=== PATIENT | male | born 1960 | race Caucasian/White ===

== ENCOUNTER 2022-09-21 03:06 | Inpatient (IN) | payer MEDICAID, OTHER ==
[~2022-09-21] VITALS: Ht 177.8 cm; Wt 51.3 kg
[2022-09-21] VITALS (11 sets, daily range): BP systolic 91–115; BP diastolic 68–91
[2022-09-21] MEDS ORDERED: ONDANSETRON HCL 4MG/2ML INJ IV STA (03:30)
[2022-09-21] MEDS ORDERED: PIPERACILLIN/TAZ 3.375G PREMIX 50 ML IV ONE (03:30)
[2022-09-21] MEDS ORDERED: SODIUM CHLORIDE 0.9% 1000ML BAG (SEPSIS BOLUS) IV ONE (03:30)
[2022-09-21] MEDS ORDERED: VANCOMYCIN 1G PREMIX 200 ML IV ONE (03:30)
[2022-09-21] MEDS ORDERED: ALBUTEROL (0.083%) 2.5MG/3ML NEB HHN STA (03:36)
[2022-09-21] MEDS ORDERED: MAGNESIUM 2 G PREMIX 50 ML IV STA (03:36)
[2022-09-21] MEDS ORDERED: METHYLPREDNISOLONE SOD SUCC 125 MG/2 ML VIAL IV STA (03:36)
[2022-09-21] MEDS ORDERED: IPRATROPIUM BROMIDE (0.02%) 0.5MG/2.5ML NEB HHN STA (03:36)
[2022-09-21 03:56] LABS: BG CARBOXYHEMOGLOBIN 0.9 % (0.5-1.5); BG FRACTION INSPIRED OXYGEN 100; BG HCO3 ACT 27.2 mmol/L (22.0-26.0); BG METHEMOGLOBIN 0.4 % (0.0-1.5); BG OXYHEMOGLOBIN 95.7 % (94.0-97.0); BG PH 7.363 (7.350-7.450); BG PO2 92.9 mmHg (75.0-100.0); BG SAMPLE SITE RIGHT RADIAL; BG TOTAL HEMOGLOBIN 16.3 g/dL (12.0-18.0); BG VENT MODE HIGH FLOW
[2022-09-21 04:17] LABS: BASOPHILS % 0.2 % (0.0-2.0); EOSINOPHILS % 0.4 % (0.0-5.0); HEMATOCRIT. 45.3 % (42.0-52.0); HEMOGLOBIN. 15.6 g/dL (14.0-18.0); LYMPHOCYTES % 8.7 % (20.0-50.0); MEAN CORPUSCULAR VOLUME 87.2 fL (80.0-94.0); MEAN PLATELET VOLUME 7.9 fl (7.4-10.4); MONOCYTES % 6.1 % (2.0-8.0); NEUTROPHILS % 84.6 % (40.0-76.0); PLATELET 235 x1000/uL (130-400); RED CELL DISTRIBUTION WIDTH 14.3 % (11.6-14.6)
[2022-09-21 04:28] LABS: CHLORIDE 99 mEq/L (98-107)
[2022-09-21] MEDS ORDERED: IPRATROPIUM/ALBUTEROL 0.5-3(2.5)MG/3ML NEB HHN ONE (08:00)
[2022-09-21] MEDS ORDERED: ONDANSETRON HCL 4MG/2ML INJ IV PRN (10:00)
[2022-09-21] MEDS: METHYLPREDNISOLONE SOD SUCC 40 MG/ML VIAL IV SCH ×3 (10:31→21:51)
[2022-09-21] MEDS: FAMOTIDINE 20MG TABLET PO SCH ×2 (14:05→21:51)
[2022-09-21] MEDS: ENOXAPARIN 40MG/0.4ML SYR SUBCUT SCH (14:06)
[2022-09-21] MEDS ORDERED: LEVO137T2 PO (15:47)
[2022-09-21] MEDS ORDERED: [UNRECOGNIZED DRUG - CODE] PO (15:47)
[2022-09-21] MEDS ORDERED: CARB10DR EACHEYE (15:50)
[2022-09-21] MEDS ORDERED: DORZ10DR12 EACHEYE (15:50)
[2022-09-21] MEDS ORDERED: BRIM5DRO6 EACHEYE (15:50)
[2022-09-21] MEDS ORDERED: CETI10TA6 PO (15:59)
[2022-09-21] MEDS ORDERED: BRIM5DRO6 LEFTEYE (15:59)
[2022-09-21] MEDS ORDERED: HYDR-4001 MT (15:59)
[2022-09-21] MEDS ORDERED: DORZ10DR12 LEFTEYE (15:59)
[2022-09-21] MEDS: IPRATROPIUM/ALBUTEROL 0.5-3(2.5)MG/3ML NEB HHN SCH ×2 (16:13→20:56)
[2022-09-21] MEDS: [UNRECOGNIZED DRUG - OTHER] PO SCH (17:17)
[2022-09-21] MEDS ORDERED: FAMOTIDINE 20MG TABLET PO SCH (21:00)
[2022-09-21] MEDS: GUAIFENESIN 600MG ER TABLET PO SCH (21:50)
[2022-09-21] MEDS: HYDROCODONE/ACETAMINOPHEN 5/325MG TABLET PO PRN (21:51)
[2022-09-22] VITALS (12 sets, daily range): BP systolic 94–129; BP diastolic 66–92
[2022-09-22] MEDS: IPRATROPIUM/ALBUTEROL 0.5-3(2.5)MG/3ML NEB HHN SCH ×6 (00:43→21:21)
[2022-09-22 06:14] LABS: HEMATOCRIT 44.6 % (42.0-52.0); HEMOGLOBIN 15.2 g/dL (14.0-18.0); MEAN CORPUSCULAR HEMOGLOBIN 29.6 pg (28.0-32.0); MEAN CORPUSCULAR VOLUME 87.1 fL (80.0-94.0); PLATELET 235 x1000/uL (130-400); RED BLOOD CELL COUNT 5.11 mill/uL (4.7-6.1); RED CELL DISTRIBUTION WIDTH 14.1 % (11.6-14.6)
[2022-09-22] MEDS: HYDROCODONE/ACETAMINOPHEN 5/325MG TABLET PO PRN ×2 (06:41→21:31)
[2022-09-22] MEDS: METHYLPREDNISOLONE SOD SUCC 40 MG/ML VIAL IV SCH ×3 (06:41→21:31)
[2022-09-22] MEDS: LEVOTHYROXINE SODIUM 137MCG TABLET PO SCH (08:26)
[2022-09-22 08:38] LABS: CHLORIDE 97 mEq/L (98-107)
[2022-09-22 08:53] LABS: HDL CHOLESTEROL 58 mg/dL (40-59); LDL CHOLESTEROL 76 mg/dL (5-100); PHOSPHORUS 3.5 mg/dL (2.5-4.9)
[2022-09-22] MEDS: ENOXAPARIN 40MG/0.4ML SYR SUBCUT SCH (09:23)
[2022-09-22] MEDS: FAMOTIDINE 20MG TABLET PO SCH ×2 (09:23→21:31)
[2022-09-22] MEDS: CETIRIZINE 10MG TABLET PO SCH (09:24)
[2022-09-22] MEDS: [UNRECOGNIZED DRUG - OTHER] PO SCH (09:24)
[2022-09-22] MEDS: DORZOLAM/TIMOLOL 2.23/0.68% OPHTH DROPS 10ML LEFTEYE SCH ×2 (09:24→17:39)
[2022-09-22] MEDS: GUAIFENESIN 600MG ER TABLET PO SCH ×2 (09:24→21:00)
[2022-09-22] MEDS: CEFEPIME 1,000 MG in DEXTROSE 5% WATER 50 ML IV SCH (10:36)
[2022-09-22] MEDS ORDERED: SODIUM CHLORIDE 3% FOR INH 4ML UD NEB INH NR (14:00)
[2022-09-22] MEDS: DEXT 5%/0.45% NACL 1000ML 1,000 ML IV SCH (14:28)
[2022-09-22] MEDS ORDERED: NALOXONE HCL 0.4MG/ML VIAL IV PRN (16:00)
[2022-09-23] VITALS (15 sets, daily range): BP systolic 91–128; BP diastolic 53–92
[2022-09-23] MEDS: IPRATROPIUM/ALBUTEROL 0.5-3(2.5)MG/3ML NEB HHN SCH ×5 (05:03→20:16)
[2022-09-23 05:43] LABS: HEMATOCRIT. 42.4 % (42.0-52.0); HEMOGLOBIN. 14.4 g/dL (14.0-18.0); LYMPHOCYTES % 7.2 % (20.0-50.0); MEAN CORPUSCULAR HEMOGLOBIN 29.7 pg (28.0-32.0); MEAN CORPUSCULAR VOLUME 87.7 fL (80.0-94.0); MEAN PLATELET VOLUME 8.1 fl (7.4-10.4); MONOCYTES % 6.2 % (2.0-8.0); NEUTROPHILS % 86.6 % (40.0-76.0); PLATELET 216 x1000/uL (130-400); RED BLOOD CELL COUNT 4.83 mill/uL (4.7-6.1); RED CELL DISTRIBUTION WIDTH 13.9 % (11.6-14.6)
[2022-09-23] MEDS: METHYLPREDNISOLONE SOD SUCC 40 MG/ML VIAL IV SCH ×3 (06:00→22:02)
[2022-09-23] MEDS: DEXT 5%/0.45% NACL 1000ML 1,000 ML IV SCH (07:07)
[2022-09-23] MEDS: ENOXAPARIN 40MG/0.4ML SYR SUBCUT SCH (09:10)
[2022-09-23] MEDS: GUAIFENESIN 600MG ER TABLET PO SCH ×2 (09:11→22:02)
[2022-09-23] MEDS: FAMOTIDINE 20MG TABLET PO SCH (09:11)
[2022-09-23] MEDS: CETIRIZINE 10MG TABLET PO SCH (09:11)
[2022-09-23] MEDS: LEVOTHYROXINE SODIUM 137MCG TABLET PO SCH (09:11)
[2022-09-23] MEDS: DORZOLAM/TIMOLOL 2.23/0.68% OPHTH DROPS 10ML LEFTEYE SCH ×2 (09:12→17:53)
[2022-09-23] MEDS: HYDROCODONE/ACETAMINOPHEN 5/325MG TABLET PO PRN ×2 (09:15→22:02)
[2022-09-23] MEDS: CEFEPIME 1,000 MG in DEXTROSE 5% WATER 50 ML IV SCH (09:32)
[2022-09-23 10:11] LABS: CHLORIDE 99 mEq/L (98-107)
[2022-09-23] MEDS: [UNRECOGNIZED DRUG - OTHER] PO SCH (17:53)
[2022-09-23] MEDS: FAMOTIDINE 20MG/2ML VIAL IV SCH (22:02)
[2022-09-24] VITALS (17 sets, daily range): BP systolic 75–138; BP diastolic 45–99
[2022-09-24] MEDS: IPRATROPIUM/ALBUTEROL 0.5-3(2.5)MG/3ML NEB HHN SCH ×6 (00:38→20:04)
[2022-09-24] MEDS: METHYLPREDNISOLONE SOD SUCC 40 MG/ML VIAL IV SCH ×3 (05:47→21:50)
[2022-09-24] MEDS: DEXT 5%/0.45% NACL 1000ML 1,000 ML IV SCH (05:47)
[2022-09-24 06:13] LABS: CHLORIDE 99 mEq/L (98-107)
[2022-09-24 06:23] LABS: PHOSPHORUS 2.9 mg/dL (2.5-4.9)
[2022-09-24 06:31] LABS: HEMATOCRIT 43.1 % (42.0-52.0); HEMOGLOBIN 14.7 g/dL (14.0-18.0); MEAN CORPUSCULAR HEMOGLOBIN 29.9 pg (28.0-32.0); MEAN CORPUSCULAR VOLUME 87.8 fL (80.0-94.0); PLATELET 201 x1000/uL (130-400); RED BLOOD CELL COUNT 4.91 mill/uL (4.7-6.1); RED CELL DISTRIBUTION WIDTH 14.1 % (11.6-14.6)
[2022-09-24] MEDS: HYDROCODONE/ACETAMINOPHEN 5/325MG TABLET PO PRN (07:11)
[2022-09-24 08:57] LABS: BG BASE EXCESS 6.1 mmol/L (-2.0-2.0); BG CARBOXYHEMOGLOBIN 0.7 % (0.5-1.5); BG DEOXYHEMOGLOBIN 0.2 % (0.0-5.0); BG FRACTION INSPIRED OXYGEN 100; BG HCO3 ACT 30.9 mmol/L (22.0-26.0); BG METHEMOGLOBIN 0.4 % (0.0-1.5); BG OXYGEN SATURATION 99.8 % (92.0-98.5); BG OXYHEMOGLOBIN 98.7 % (94.0-97.0); BG PCO2 44.5 mmHg (35.0-45.0); BG PH 7.459 (7.350-7.450); BG PO2 334.4 mmHg (75.0-100.0); BG SAMPLE SITE RIGHT BRACHIAL; BG TOTAL HEMOGLOBIN 15.3 g/dL (12.0-18.0); BG VENT MODE HIGH FLOW
[2022-09-24] MEDS: [UNRECOGNIZED DRUG - OTHER] PO SCH (09:00)
[2022-09-24] MEDS: ENOXAPARIN 40MG/0.4ML SYR SUBCUT SCH (09:49)
[2022-09-24] MEDS: FAMOTIDINE 20MG/2ML VIAL IV SCH ×2 (09:49→21:50)
[2022-09-24] MEDS: CETIRIZINE 10MG TABLET PO SCH (09:49)
[2022-09-24] MEDS: CEFEPIME 1,000 MG in DEXTROSE 5% WATER 50 ML IV SCH (09:49)
[2022-09-24] MEDS: GUAIFENESIN 600MG ER TABLET PO SCH ×2 (09:49→21:51)
[2022-09-24] MEDS: DORZOLAM/TIMOLOL 2.23/0.68% OPHTH DROPS 10ML LEFTEYE SCH ×2 (09:50→17:24)
[2022-09-24] MEDS: LEVOTHYROXINE SODIUM 137MCG TABLET PO SCH (15:10)
[2022-09-24] MEDS ORDERED: MORPHINE SULFATE 2 MG/ML CPJ (NOT FOR IM USE) IV NR (17:15)
[2022-09-25] VITALS (22 sets, daily range): BP systolic 88–137; BP diastolic 60–103
[2022-09-25] MEDS: IPRATROPIUM/ALBUTEROL 0.5-3(2.5)MG/3ML NEB HHN SCH ×6 (00:17→20:39)
[2022-09-25] MEDS: DEXT 5%/0.45% NACL 1000ML 1,000 ML IV SCH ×2 (01:38→22:19)
[2022-09-25] MEDS: METHYLPREDNISOLONE SOD SUCC 40 MG/ML VIAL IV SCH ×3 (06:04→22:19)
[2022-09-25] MEDS: LEVOTHYROXINE SODIUM 137MCG TABLET PO SCH (07:46)
[2022-09-25 08:47] LABS: HEMATOCRIT 46.3 % (42.0-52.0); HEMOGLOBIN 15.6 g/dL (14.0-18.0); MEAN CORPUSCULAR HEMOGLOBIN 29.8 pg (28.0-32.0); MEAN CORPUSCULAR VOLUME 88.3 fL (80.0-94.0); PLATELET 194 x1000/uL (130-400); RED BLOOD CELL COUNT 5.24 mill/uL (4.7-6.1); RED CELL DISTRIBUTION WIDTH 14.2 % (11.6-14.6)
[2022-09-25] MEDS: CETIRIZINE 10MG TABLET PO SCH (09:00)
[2022-09-25] MEDS: [UNRECOGNIZED DRUG - OTHER] PO SCH (09:00)
[2022-09-25 09:06] LABS: CHLORIDE 100 mEq/L (98-107)
[2022-09-25] MEDS: FAMOTIDINE 20MG/2ML VIAL IV SCH ×2 (09:51→22:18)
[2022-09-25] MEDS: GUAIFENESIN 600MG ER TABLET PO SCH ×2 (09:51→22:17)
[2022-09-25] MEDS: ENOXAPARIN 40MG/0.4ML SYR SUBCUT SCH (09:52)
[2022-09-25] MEDS: CEFEPIME 1,000 MG in DEXTROSE 5% WATER 50 ML IV SCH (09:53)
[2022-09-25] MEDS: DORZOLAM/TIMOLOL 2.23/0.68% OPHTH DROPS 10ML LEFTEYE SCH ×2 (10:01→17:43)
[2022-09-25] MEDS: MORPHINE SULFATE 2 MG/ML CPJ (NOT FOR IM USE) IV PRN (12:10)
[2022-09-25] MEDS: HYDROCODONE/ACETAMINOPHEN 5/325MG TABLET PO PRN (22:30)
[2022-09-26] VITALS (23 sets, daily range): BP systolic 88–150; BP diastolic 61–102
[2022-09-26] MEDS: IPRATROPIUM/ALBUTEROL 0.5-3(2.5)MG/3ML NEB HHN SCH ×6 (04:27→21:44)
[2022-09-26] MEDS: LEVOTHYROXINE SODIUM 137MCG TABLET PO SCH (06:22)
[2022-09-26] MEDS: MORPHINE SULFATE 2 MG/ML CPJ (NOT FOR IM USE) IV PRN ×3 (06:23→21:44)
[2022-09-26] MEDS: METHYLPREDNISOLONE SOD SUCC 40 MG/ML VIAL IV SCH ×3 (06:27→21:43)
[2022-09-26 08:23] LABS: BG BASE EXCESS 3.6 mmol/L (-2.0-2.0); BG CARBOXYHEMOGLOBIN 0.3 % (0.5-1.5); BG DEOXYHEMOGLOBIN 1.9 % (0.0-5.0); BG HCO3 ACT 28.1 mmol/L (22.0-26.0); BG METHEMOGLOBIN 0.1 % (0.0-1.5); BG OXYGEN SATURATION 98.1 % (92.0-98.5); BG OXYHEMOGLOBIN 97.7 % (94.0-97.0); BG PCO2 42.2 mmHg (35.0-45.0); BG PH 7.442 (7.350-7.450); BG PO2 108.1 mmHg (75.0-100.0); BG SAMPLE SITE RIGHT BRACHIAL; BG TOTAL HEMOGLOBIN 15.6 g/dL (12.0-18.0); BG VENT MODE VAPOTHERM
[2022-09-26] MEDS: GUAIFENESIN 600MG ER TABLET PO SCH ×2 (09:25→21:43)
[2022-09-26] MEDS: FAMOTIDINE 20MG/2ML VIAL IV SCH ×2 (09:25→21:43)
[2022-09-26] MEDS: ENOXAPARIN 40MG/0.4ML SYR SUBCUT SCH (09:25)
[2022-09-26] MEDS: CEFEPIME 1,000 MG in DEXTROSE 5% WATER 50 ML IV SCH (09:25)
[2022-09-26] MEDS: CETIRIZINE 10MG TABLET PO SCH (09:26)
[2022-09-26] MEDS: DORZOLAM/TIMOLOL 2.23/0.68% OPHTH DROPS 10ML LEFTEYE SCH ×2 (09:26→17:30)
[2022-09-26] MEDS: [UNRECOGNIZED DRUG - OTHER] PO SCH (09:26)
[2022-09-26 12:05] LABS: HEMATOCRIT. 44.8 % (42.0-52.0); HEMOGLOBIN. 15.1 g/dL (14.0-18.0); MEAN CORPUSCULAR HEMOGLOBIN 29.8 pg (28.0-32.0); MEAN CORPUSCULAR VOLUME 88.5 fL (80.0-94.0); MEAN PLATELET VOLUME 8.8 fl (7.4-10.4); PLATELET 172 x1000/uL (130-400); RED BLOOD CELL COUNT 5.06 mill/uL (4.7-6.1); RED CELL DISTRIBUTION WIDTH 14.1 % (11.6-14.6)
[2022-09-26 15:33] LABS: CHLORIDE 103 mEq/L (98-107)
[2022-09-26] MEDS: DEXT 5%/0.45% NACL 1000ML 1,000 ML IV SCH (17:29)
[2022-09-26] MEDS: HYDROCODONE/ACETAMINOPHEN 5/325MG TABLET PO PRN (18:43)
[2022-09-27] VITALS (15 sets, daily range): BP systolic 97–135; BP diastolic 66–97
[2022-09-27] MEDS: IPRATROPIUM/ALBUTEROL 0.5-3(2.5)MG/3ML NEB HHN SCH ×6 (01:00→20:56)
[2022-09-27 06:37] LABS: PLATELET ESTIMATE NORMAL
[2022-09-27] MEDS: METHYLPREDNISOLONE SOD SUCC 40 MG/ML VIAL IV SCH ×3 (06:40→22:21)
[2022-09-27] MEDS: LEVOTHYROXINE SODIUM 137MCG TABLET PO SCH (06:40)
[2022-09-27] MEDS: HYDROCODONE/ACETAMINOPHEN 5/325MG TABLET PO PRN ×4 (08:08→21:14)
[2022-09-27] MEDS: FAMOTIDINE 20MG/2ML VIAL IV SCH ×2 (08:08→21:14)
[2022-09-27] MEDS: GUAIFENESIN 600MG ER TABLET PO SCH ×2 (08:09→21:14)
[2022-09-27] MEDS: ENOXAPARIN 40MG/0.4ML SYR SUBCUT SCH (08:09)
[2022-09-27] MEDS: DORZOLAM/TIMOLOL 2.23/0.68% OPHTH DROPS 10ML LEFTEYE SCH ×2 (08:42→17:38)
[2022-09-27] MEDS: [UNRECOGNIZED DRUG - OTHER] PO SCH (08:42)
[2022-09-27] MEDS: CETIRIZINE 10MG TABLET PO SCH (08:43)
[2022-09-27 09:14] LABS: BG BASE EXCESS 5.2 mmol/L (-2.0-2.0); BG CARBOXYHEMOGLOBIN 0.3 % (0.5-1.5); BG DEOXYHEMOGLOBIN 2.4 % (0.0-5.0); BG FRACTION INSPIRED OXYGEN 50; BG HCO3 ACT 29.9 mmol/L (22.0-26.0); BG METHEMOGLOBIN 0.5 % (0.0-1.5); BG OXYGEN SATURATION 97.6 % (92.0-98.5); BG OXYHEMOGLOBIN 96.8 % (94.0-97.0); BG PO2 100.2 mmHg (75.0-100.0); BG SAMPLE SITE RIGHT RADIAL; BG TOTAL HEMOGLOBIN 15.4 g/dL (12.0-18.0); BG VENT MODE HIGH FLOW
[2022-09-27 09:27] LABS: HEMATOCRIT 44.5 % (42.0-52.0); MEAN CORPUSCULAR HEMOGLOBIN 29.8 pg (28.0-32.0); MEAN CORPUSCULAR VOLUME 88.7 fL (80.0-94.0); PLATELET 164 x1000/uL (130-400); RED BLOOD CELL COUNT 5.02 mill/uL (4.7-6.1); RED CELL DISTRIBUTION WIDTH 14.2 % (11.6-14.6)
[2022-09-27 09:54] LABS: CHLORIDE 105 mEq/L (98-107)
[2022-09-27] MEDS: CEFEPIME 1,000 MG in DEXTROSE 5% WATER 50 ML IV SCH (10:01)
[2022-09-27] MEDS ORDERED: POTASSIUM CHLORIDE 20MEQ TABLET SR PO NR (10:15)
[2022-09-27] MEDS ORDERED: POTASSIUM CHLORIDE 20MEQ/PACKET PO NR (10:18)
[2022-09-27] MEDS: DEXT 5%/0.45% NACL 1000ML 1,000 ML IV SCH (13:39)
[2022-09-27] MEDS ORDERED: ERGOCALCIFEROL 50000UNITS CAPSULE PO ONE (14:30)
[2022-09-27] MEDS: ZINC SULFATE 220 MG ( 50 ) CAPSULE PO SCH (14:43)
[2022-09-27] MEDS: MULTIVITAMINS,THER W-MINERALS TABLET PO SCH (14:43)
[2022-09-27] MEDS: ASCORBIC ACID 500 MG TABLET PO SCH (14:43)
[2022-09-27] MEDS: CHOLECALCIFEROL (VIT D3) 400 UNIT TABLET PO SCH (18:28)
[2022-09-27] MEDS ORDERED: IOHEXOL-350 100 ML BOTTLE ONE (19:17)
[2022-09-27] MEDS: MORPHINE SULFATE 2 MG/ML CPJ (NOT FOR IM USE) IV PRN (22:21)
[2022-09-28] VITALS (12 sets, daily range): BP systolic 99–125; BP diastolic 68–90
[2022-09-28] MEDS: HYDROCODONE/ACETAMINOPHEN 5/325MG TABLET PO PRN ×4 (04:27→20:48)
[2022-09-28] MEDS: IPRATROPIUM/ALBUTEROL 0.5-3(2.5)MG/3ML NEB HHN SCH ×5 (04:33→20:09)
[2022-09-28] MEDS: METHYLPREDNISOLONE SOD SUCC 40 MG/ML VIAL IV SCH ×3 (05:10→20:48)
[2022-09-28 07:35] LABS: HEMATOCRIT. 41.3 % (42.0-52.0); HEMOGLOBIN. 14.1 g/dL (14.0-18.0); LYMPHOCYTES % 8.7 % (20.0-50.0); MEAN CORPUSCULAR HEMOGLOBIN 29.9 pg (28.0-32.0); MEAN CORPUSCULAR VOLUME 87.9 fL (80.0-94.0); MEAN PLATELET VOLUME 8.5 fl (7.4-10.4); MONOCYTES % 7.8 % (2.0-8.0); NEUTROPHILS % 83.5 % (40.0-76.0); PLATELET 178 x1000/uL (130-400); RED BLOOD CELL COUNT 4.69 mill/uL (4.7-6.1); RED CELL DISTRIBUTION WIDTH 13.9 % (11.6-14.6)
[2022-09-28 07:40] LABS: CHLORIDE 103 mEq/L (98-107)
[2022-09-28] MEDS: MULTIVITAMINS,THER W-MINERALS TABLET PO SCH (08:44)
[2022-09-28] MEDS: [UNRECOGNIZED DRUG - OTHER] PO SCH (08:44)
[2022-09-28] MEDS: ASCORBIC ACID 500 MG TABLET PO SCH (08:44)
[2022-09-28] MEDS: GUAIFENESIN 600MG ER TABLET PO SCH ×2 (08:44→20:48)
[2022-09-28] MEDS: LEVOTHYROXINE SODIUM 137MCG TABLET PO SCH (08:44)
[2022-09-28] MEDS: ZINC SULFATE 220 MG ( 50 ) CAPSULE PO SCH (08:44)
[2022-09-28] MEDS: DORZOLAM/TIMOLOL 2.23/0.68% OPHTH DROPS 10ML LEFTEYE SCH ×2 (08:44→17:41)
[2022-09-28] MEDS: CETIRIZINE 10MG TABLET PO SCH (08:45)
[2022-09-28] MEDS: DEXT 5%/0.45% NACL 1000ML 1,000 ML IV SCH (08:45)
[2022-09-28] MEDS: ENOXAPARIN 40MG/0.4ML SYR SUBCUT SCH (08:45)
[2022-09-28 09:54] LABS: BG BASE EXCESS 8.1 mmol/L (-2.0-2.0); BG CARBOXYHEMOGLOBIN 0.3 % (0.5-1.5); BG DEOXYHEMOGLOBIN 1.6 % (0.0-5.0); BG FRACTION INSPIRED OXYGEN 50; BG HCO3 ACT 32.9 mmol/L (22.0-26.0); BG METHEMOGLOBIN 0.2 % (0.0-1.5); BG OXYGEN SATURATION 98.4 % (92.0-98.5); BG OXYHEMOGLOBIN 97.9 % (94.0-97.0); BG PCO2 45.9 mmHg (35.0-45.0); BG PH 7.473 (7.350-7.450); BG PO2 122.4 mmHg (75.0-100.0); BG SAMPLE SITE RIGHT RADIAL; BG TOTAL HEMOGLOBIN 14.4 g/dL (12.0-18.0); BG VENT MODE HIGH FLOW
[2022-09-28] MEDS: FAMOTIDINE 20MG/2ML VIAL IV SCH ×2 (13:49→20:48)
[2022-09-28] MEDS: MORPHINE SULFATE 2 MG/ML CPJ (NOT FOR IM USE) IV PRN (22:04)
[2022-09-29] VITALS (18 sets, daily range): BP systolic 109–146; BP diastolic 70–100
[2022-09-29] MEDS: IPRATROPIUM/ALBUTEROL 0.5-3(2.5)MG/3ML NEB HHN SCH ×6 (00:10→20:59)
[2022-09-29] MEDS: HYDROCODONE/ACETAMINOPHEN 5/325MG TABLET PO PRN ×3 (04:36→23:32)
[2022-09-29] MEDS: DEXT 5%/0.45% NACL 1000ML 1,000 ML IV SCH (04:37)
[2022-09-29] MEDS: METHYLPREDNISOLONE SOD SUCC 40 MG/ML VIAL IV SCH ×3 (04:56→21:11)
[2022-09-29 06:42] LABS: HEMATOCRIT. 40.5 % (42.0-52.0); HEMOGLOBIN. 13.6 g/dL (14.0-18.0); MEAN CORPUSCULAR HEMOGLOBIN 29.9 pg (28.0-32.0); MEAN CORPUSCULAR VOLUME 88.8 fL (80.0-94.0); MEAN PLATELET VOLUME 8.7 fl (7.4-10.4); PLATELET 177 x1000/uL (130-400); RED BLOOD CELL COUNT 4.56 mill/uL (4.7-6.1); RED CELL DISTRIBUTION WIDTH 14.4 % (11.6-14.6)
[2022-09-29] MEDS: [UNRECOGNIZED DRUG - OTHER] PO SCH (09:00)
[2022-09-29 09:19] LABS: BG BASE EXCESS 9.2 mmol/L (-2.0-2.0); BG CARBOXYHEMOGLOBIN 0.4 % (0.5-1.5); BG DEOXYHEMOGLOBIN 0.8 % (0.0-5.0); BG FRACTION INSPIRED OXYGEN 50; BG HCO3 ACT 34.4 mmol/L (22.0-26.0); BG METHEMOGLOBIN 0.3 % (0.0-1.5); BG OXYGEN SATURATION 99.2 % (92.0-98.5); BG OXYHEMOGLOBIN 98.5 % (94.0-97.0); BG PCO2 48.5 mmHg (35.0-45.0); BG PH 7.469 (7.350-7.450); BG PO2 183.6 mmHg (75.0-100.0); BG SAMPLE SITE RIGHT RADIAL; BG TOTAL HEMOGLOBIN 14.5 g/dL (12.0-18.0); BG VENT MODE VAPOTHERM
[2022-09-29] MEDS: CETIRIZINE 10MG TABLET PO SCH (09:21)
[2022-09-29] MEDS: ASCORBIC ACID 500 MG TABLET PO SCH (09:21)
[2022-09-29] MEDS: MULTIVITAMINS,THER W-MINERALS TABLET PO SCH (09:21)
[2022-09-29] MEDS: ZINC SULFATE 220 MG ( 50 ) CAPSULE PO SCH (09:21)
[2022-09-29] MEDS: FAMOTIDINE 20MG/2ML VIAL IV SCH ×2 (09:21→21:11)
[2022-09-29] MEDS: GUAIFENESIN 600MG ER TABLET PO SCH ×2 (09:21→21:11)
[2022-09-29] MEDS: DORZOLAM/TIMOLOL 2.23/0.68% OPHTH DROPS 10ML LEFTEYE SCH ×2 (09:22→17:53)
[2022-09-29] MEDS: CHOLECALCIFEROL (VIT D3) 400 UNIT TABLET PO SCH (09:22)
[2022-09-29] MEDS: ENOXAPARIN 40MG/0.4ML SYR SUBCUT SCH (09:22)
[2022-09-29 10:08] LABS: CHLORIDE 102 mEq/L (98-107)
[2022-09-29] MEDS: LEVOTHYROXINE SODIUM 137MCG TABLET PO SCH (15:03)
[2022-09-29] MEDS: PANTOPRAZOLE SODIUM 40 MG/VIAL IV SCH (21:11)
[2022-09-29] MEDS: MORPHINE SULFATE 2 MG/ML CPJ (NOT FOR IM USE) IV PRN (21:12)
[2022-09-30] VITALS (16 sets, daily range): BP systolic 104–149; BP diastolic 69–109
[2022-09-30] MEDS: IPRATROPIUM/ALBUTEROL 0.5-3(2.5)MG/3ML NEB HHN SCH ×6 (00:55→21:37)
[2022-09-30] MEDS: DEXT 5%/0.45% NACL 1000ML 1,000 ML IV SCH ×2 (01:45→21:25)
[2022-09-30 03:30] LABS: HEMATOCRIT. 42.2 % (42.0-52.0); HEMOGLOBIN. 14.1 g/dL (14.0-18.0); MEAN CORPUSCULAR HEMOGLOBIN 29.5 pg (28.0-32.0); MEAN CORPUSCULAR VOLUME 88.4 fL (80.0-94.0); MEAN PLATELET VOLUME 8.5 fl (7.4-10.4); PLATELET 167 x1000/uL (130-400); RED BLOOD CELL COUNT 4.78 mill/uL (4.7-6.1); RED CELL DISTRIBUTION WIDTH 14.2 % (11.6-14.6)
[2022-09-30 04:00] LABS: PROTHROMBIN TIME 10.5 sec (9.6-11.0)
[2022-09-30 04:07] LABS: CHLORIDE 100 mEq/L (98-107)
[2022-09-30] MEDS: LEVOTHYROXINE SODIUM 137MCG TABLET PO SCH ×2 (06:59→15:53)
[2022-09-30] MEDS: METHYLPREDNISOLONE SOD SUCC 40 MG/ML VIAL IV SCH ×3 (06:59→21:24)
[2022-09-30 08:19] LABS: BG BASE EXCESS 11.8 mmol/L (-2.0-2.0); BG CARBOXYHEMOGLOBIN 0.5 % (0.5-1.5); BG FRACTION INSPIRED OXYGEN 50; BG HCO3 ACT 37.7 mmol/L (22.0-26.0); BG METHEMOGLOBIN 0.3 % (0.0-1.5); BG OXYHEMOGLOBIN 98.2 % (94.0-97.0); BG PCO2 52.7 mmHg (35.0-45.0); BG PH 7.472 (7.350-7.450); BG PO2 155.8 mmHg (75.0-100.0); BG SAMPLE SITE RIGHT RADIAL; BG TOTAL HEMOGLOBIN 15.4 g/dL (12.0-18.0); BG VENT MODE VAPOTHERM
[2022-09-30] MEDS: [UNRECOGNIZED DRUG - OTHER] PO SCH (09:00)
[2022-09-30] MEDS: DORZOLAM/TIMOLOL 2.23/0.68% OPHTH DROPS 10ML LEFTEYE SCH ×2 (09:19→19:20)
[2022-09-30] MEDS: FAMOTIDINE 20MG/2ML VIAL IV SCH (09:19)
[2022-09-30] MEDS: PANTOPRAZOLE SODIUM 40 MG/VIAL IV SCH ×2 (09:19→21:52)
[2022-09-30 10:36] LABS: PLATELET ESTIMATE NORMAL
[2022-09-30] MEDS ORDERED: PROPOFOL 200MG/20ML VIAL IV ONE (11:25)
[2022-09-30] MEDS ORDERED: CEFAZOLIN SODIUM 1000MG/VIAL ONE (11:28)
[2022-09-30 12:31] LABS: PLATELET ESTIMATE NORMAL
[2022-09-30 13:42] LABS: BG BASE EXCESS 6.1 mmol/L (-2.0-2.0); BG CARBOXYHEMOGLOBIN 0.5 % (0.5-1.5); BG HCO3 ACT 30.4 mmol/L (22.0-26.0); BG METHEMOGLOBIN 0.1 % (0.0-1.5); BG OXYGEN SATURATION 86.9 % (92.0-98.5); BG OXYHEMOGLOBIN 86.4 % (94.0-97.0); BG PCO2 42.2 mmHg (35.0-45.0); BG PH 7.475 (7.350-7.450); BG PO2 48.9 mmHg (75.0-100.0); BG SAMPLE SITE RIGHT BRACHIAL; BG TOTAL HEMOGLOBIN 15.4 g/dL (12.0-18.0); BG VENT MODE ROOM AIR
[2022-09-30] MEDS: ZINC SULFATE 220 MG ( 50 ) CAPSULE PO SCH (15:53)
[2022-09-30] MEDS: ASCORBIC ACID 500 MG TABLET PO SCH (15:53)
[2022-09-30] MEDS: MULTIVITAMINS,THER W-MINERALS TABLET PO SCH (15:53)
[2022-09-30] MEDS: CHOLECALCIFEROL (VIT D3) 400 UNIT TABLET PO SCH (18:08)
[2022-09-30] MEDS: GUAIFENESIN 600MG ER TABLET PO SCH ×2 (18:08→21:24)
[2022-09-30] MEDS: CETIRIZINE 10MG TABLET PO SCH (18:08)
[2022-09-30] MEDS: METOCLOPRAMIDE HCL 10MG/2ML VIAL IV SCH (18:08)
[2022-09-30] MEDS: HYDROCODONE/ACETAMINOPHEN 5/325MG TABLET PO PRN (19:26)
[2022-09-30] MEDS ORDERED: MORPHINE SULFATE 2 MG/ML CPJ (NOT FOR IM USE) IV PRN (23:45)
[2022-10-01] VITALS (15 sets, daily range): BP systolic 90–127; BP diastolic 61–94
[2022-10-01] MEDS: IPRATROPIUM/ALBUTEROL 0.5-3(2.5)MG/3ML NEB HHN SCH ×6 (00:48→20:24)
[2022-10-01] MEDS: HYDROCODONE/ACETAMINOPHEN 5/325MG TABLET PO PRN ×3 (02:38→09:50)
[2022-10-01] MEDS: METOCLOPRAMIDE HCL 10MG/2ML VIAL IV SCH ×5 (06:34→23:38)
[2022-10-01] MEDS: METHYLPREDNISOLONE SOD SUCC 40 MG/ML VIAL IV SCH ×3 (06:34→21:49)
[2022-10-01 08:39] LABS: BG BASE EXCESS 9.7 mmol/L (-2.0-2.0); BG CARBOXYHEMOGLOBIN 0.3 % (0.5-1.5); BG DEOXYHEMOGLOBIN 0.5 % (0.0-5.0); BG FRACTION INSPIRED OXYGEN 100; BG HCO3 ACT 34.9 mmol/L (22.0-26.0); BG METHEMOGLOBIN 0.3 % (0.0-1.5); BG OXYGEN SATURATION 99.5 % (92.0-98.5); BG OXYHEMOGLOBIN 98.9 % (94.0-97.0); BG PCO2 49.1 mmHg (35.0-45.0); BG PO2 368.6 mmHg (75.0-100.0); BG SAMPLE SITE RIGHT RADIAL; BG TOTAL HEMOGLOBIN 14.6 g/dL (12.0-18.0); BG VENT MODE HIGH FLOW
[2022-10-01] MEDS: [UNRECOGNIZED DRUG - OTHER] PO SCH (09:00)
[2022-10-01 09:46] LABS: HEMATOCRIT 42.9 % (42.0-52.0); HEMOGLOBIN 14.3 g/dL (14.0-18.0); MEAN CORPUSCULAR HEMOGLOBIN 29.2 pg (28.0-32.0); PLATELET 172 x1000/uL (130-400); RED BLOOD CELL COUNT 4.88 mill/uL (4.7-6.1); RED CELL DISTRIBUTION WIDTH 14.3 % (11.6-14.6)
[2022-10-01] MEDS: ENOXAPARIN 40MG/0.4ML SYR SUBCUT SCH (09:48)
[2022-10-01] MEDS: CETIRIZINE 10MG TABLET PO SCH (09:49)
[2022-10-01] MEDS: PANTOPRAZOLE SODIUM 40 MG/VIAL IV SCH ×2 (09:49→21:49)
[2022-10-01] MEDS: MULTIVITAMINS,THER W-MINERALS TABLET PO SCH (09:49)
[2022-10-01] MEDS: ASCORBIC ACID 500 MG TABLET PO SCH (09:49)
[2022-10-01] MEDS: CHOLECALCIFEROL (VIT D3) 400 UNIT TABLET PO SCH (09:49)
[2022-10-01] MEDS: GUAIFENESIN 600MG ER TABLET PO SCH ×2 (09:49→21:49)
[2022-10-01] MEDS: ZINC SULFATE 220 MG ( 50 ) CAPSULE PO SCH (09:49)
[2022-10-01] MEDS: DORZOLAM/TIMOLOL 2.23/0.68% OPHTH DROPS 10ML LEFTEYE SCH ×2 (09:51→18:15)
[2022-10-01 15:06] LABS: *ASPERGILLUS FUMIGATUS IGG 15.8 mg/L (0.0-50.6)
[2022-10-01] MEDS: MORPHINE SULFATE 2 MG/ML CPJ (NOT FOR IM USE) IV PRN ×2 (16:40→23:58)
[2022-10-01 17:49] LABS: CHLORIDE 103 mEq/L (98-107)
[2022-10-01] MEDS: DEXT 5%/0.45% NACL 1000ML 1,000 ML IV SCH (18:09)
[2022-10-01] MEDS: ACETAMINOPHEN 325MG TABLET PO PRN (21:57)
[2022-10-01] MEDS: PIPERACILLIN/TAZOBACTAM 3.375 G in DEXTROSE 5% WATER 50 ML IV SCH (22:19)
[2022-10-02] VITALS (10 sets, daily range): BP systolic 87–135; BP diastolic 50–99
[2022-10-02] MEDS: IPRATROPIUM/ALBUTEROL 0.5-3(2.5)MG/3ML NEB HHN SCH ×6 (00:12→20:37)
[2022-10-02] MEDS: PIPERACILLIN/TAZOBACTAM 3.375 G in DEXTROSE 5% WATER 50 ML IV SCH ×3 (04:26→21:22)
[2022-10-02] MEDS: HYDROCODONE/ACETAMINOPHEN 5/325MG TABLET PO PRN ×2 (04:26→21:23)
[2022-10-02] MEDS: METHYLPREDNISOLONE SOD SUCC 40 MG/ML VIAL IV SCH ×3 (04:27→21:22)
[2022-10-02] MEDS: METOCLOPRAMIDE HCL 10MG/2ML VIAL IV SCH ×3 (04:27→17:31)
[2022-10-02] MEDS: LEVOTHYROXINE SODIUM 137MCG TABLET PO SCH (06:55)
[2022-10-02 07:02] LABS: HEMATOCRIT. 42.1 % (42.0-52.0); HEMOGLOBIN. 14.1 g/dL (14.0-18.0); MEAN CORPUSCULAR HEMOGLOBIN 29.6 pg (28.0-32.0); MEAN CORPUSCULAR VOLUME 88.6 fL (80.0-94.0); MEAN PLATELET VOLUME 8.9 fl (7.4-10.4); PLATELET 200 x1000/uL (130-400); RED BLOOD CELL COUNT 4.76 mill/uL (4.7-6.1); RED CELL DISTRIBUTION WIDTH 14.2 % (11.6-14.6)
[2022-10-02] MEDS: ASCORBIC ACID 500 MG TABLET PO SCH (08:59)
[2022-10-02] MEDS: CETIRIZINE 10MG TABLET PO SCH (08:59)
[2022-10-02] MEDS: CHOLECALCIFEROL (VIT D3) 400 UNIT TABLET PO SCH (08:59)
[2022-10-02] MEDS: ZINC SULFATE 220 MG ( 50 ) CAPSULE PO SCH (08:59)
[2022-10-02] MEDS: MULTIVITAMINS,THER W-MINERALS TABLET PO SCH (08:59)
[2022-10-02] MEDS: GUAIFENESIN 600MG ER TABLET PO SCH ×2 (08:59→21:22)
[2022-10-02] MEDS: ENOXAPARIN 40MG/0.4ML SYR SUBCUT SCH (08:59)
[2022-10-02] MEDS: PANTOPRAZOLE SODIUM 40 MG/VIAL IV SCH ×2 (09:00→21:22)
[2022-10-02] MEDS: [UNRECOGNIZED DRUG - OTHER] PO SCH (09:02)
[2022-10-02] MEDS: DORZOLAM/TIMOLOL 2.23/0.68% OPHTH DROPS 10ML LEFTEYE SCH ×2 (09:22→17:32)
[2022-10-02] MEDS: MORPHINE SULFATE 2 MG/ML CPJ (NOT FOR IM USE) IV PRN ×2 (09:28→17:32)
[2022-10-02] MEDS: DEXT 5%/0.45% NACL 1000ML 1,000 ML IV SCH (13:14)
[2022-10-02 13:35] LABS: PLATELET ESTIMATE NORMAL
[2022-10-02 16:22] LABS: CHLORIDE 102 mEq/L (98-107)
[2022-10-02] MEDS ORDERED: SENNOSIDES/DOCUSATE SOD 8.6/50MG TABLET PO PRN (18:00)
[2022-10-02] MEDS: DOCUSATE SODIUM SUGAR FREE 100MG/10ML UDC GT SCH (18:00)
[2022-10-03] VITALS (7 sets, daily range): BP systolic 116–145; BP diastolic 90–98
[2022-10-03] MEDS: IPRATROPIUM/ALBUTEROL 0.5-3(2.5)MG/3ML NEB HHN SCH ×7 (00:16→23:25)
[2022-10-03] MEDS: METOCLOPRAMIDE HCL 10MG/2ML VIAL IV SCH ×5 (00:54→23:14)
[2022-10-03] MEDS: MORPHINE SULFATE 2 MG/ML CPJ (NOT FOR IM USE) IV PRN ×3 (00:55→22:40)
[2022-10-03] MEDS: METHYLPREDNISOLONE SOD SUCC 40 MG/ML VIAL IV SCH ×3 (05:55→23:13)
[2022-10-03] MEDS: PIPERACILLIN/TAZOBACTAM 3.375 G in DEXTROSE 5% WATER 50 ML IV SCH ×3 (05:55→23:14)
[2022-10-03] MEDS: GUAIFENESIN 600MG ER TABLET PO SCH ×2 (08:43→20:33)
[2022-10-03] MEDS: CHOLECALCIFEROL (VIT D3) 400 UNIT TABLET PO SCH (08:43)
[2022-10-03] MEDS: PANTOPRAZOLE SODIUM 40 MG/VIAL IV SCH ×2 (08:43→20:34)
[2022-10-03] MEDS: ZINC SULFATE 220 MG ( 50 ) CAPSULE PO SCH (08:43)
[2022-10-03] MEDS: LEVOTHYROXINE SODIUM 137MCG TABLET PO SCH (08:43)
[2022-10-03] MEDS: CETIRIZINE 10MG TABLET PO SCH (08:43)
[2022-10-03] MEDS: DOCUSATE SODIUM SUGAR FREE 100MG/10ML UDC GT SCH (08:43)
[2022-10-03] MEDS: MULTIVITAMINS,THER W-MINERALS TABLET PO SCH (08:43)
[2022-10-03] MEDS: ASCORBIC ACID 500 MG TABLET PO SCH (08:43)
[2022-10-03] MEDS: ENOXAPARIN 40MG/0.4ML SYR SUBCUT SCH (08:43)
[2022-10-03] MEDS: [UNRECOGNIZED DRUG - OTHER] PO SCH (08:44)
[2022-10-03] MEDS: DORZOLAM/TIMOLOL 2.23/0.68% OPHTH DROPS 10ML LEFTEYE SCH ×2 (08:44→18:29)
[2022-10-03] MEDS: DEXT 5%/0.45% NACL 1000ML 1,000 ML IV SCH (08:45)
[2022-10-03] MEDS: HYDROCODONE/ACETAMINOPHEN 5/325MG TABLET PO PRN ×3 (08:56→20:33)
[2022-10-04 00:10] VITALS: BP 142/96
[2022-10-04] MEDS: HYDROCODONE/ACETAMINOPHEN 5/325MG TABLET PO PRN (02:09)
[2022-10-04] MEDS: IPRATROPIUM/ALBUTEROL 0.5-3(2.5)MG/3ML NEB HHN SCH ×5 (03:22→20:14)
[2022-10-04 04:00] VITALS: BP_SYST 137; BP_SYST 153; BP_DIAS 89; BP_DIAS 99
[2022-10-04] MEDS: METHYLPREDNISOLONE SOD SUCC 40 MG/ML VIAL IV SCH ×2 (05:37→13:54)
[2022-10-04] MEDS: METOCLOPRAMIDE HCL 10MG/2ML VIAL IV SCH ×3 (05:37→22:37)
[2022-10-04] MEDS: LEVOTHYROXINE SODIUM 137MCG TABLET PO SCH (05:38)
[2022-10-04] MEDS: MORPHINE SULFATE 2 MG/ML CPJ (NOT FOR IM USE) IV PRN (06:36)
[2022-10-04] MEDS: PIPERACILLIN/TAZOBACTAM 3.375 G in DEXTROSE 5% WATER 50 ML IV SCH ×3 (06:36→22:15)
[2022-10-04 08:00] VITALS: BP 109/76
[2022-10-04 08:16] LABS: HEMATOCRIT. 41.5 % (42.0-52.0); HEMOGLOBIN. 13.9 g/dL (14.0-18.0); MEAN CORPUSCULAR HEMOGLOBIN 29.7 pg (28.0-32.0); MEAN CORPUSCULAR VOLUME 88.4 fL (80.0-94.0); MEAN PLATELET VOLUME 8.7 fl (7.4-10.4); PLATELET 175 x1000/uL (130-400); RED BLOOD CELL COUNT 4.69 mill/uL (4.7-6.1); RED CELL DISTRIBUTION WIDTH 14.1 % (11.6-14.6)
[2022-10-04 08:46] LABS: CHLORIDE 100 mEq/L (98-107)
[2022-10-04] MEDS: DOCUSATE SODIUM SUGAR FREE 100MG/10ML UDC GT SCH (09:00)
[2022-10-04] MEDS: [UNRECOGNIZED DRUG - OTHER] PO SCH (09:00)
[2022-10-04] MEDS: MULTIVITAMINS,THER W-MINERALS TABLET PO SCH (09:56)
[2022-10-04] MEDS: ZINC SULFATE 220 MG ( 50 ) CAPSULE PO SCH (09:56)
[2022-10-04] MEDS: CETIRIZINE 10MG TABLET PO SCH (09:56)
[2022-10-04] MEDS: ASCORBIC ACID 500 MG TABLET PO SCH (09:56)
[2022-10-04] MEDS: PANTOPRAZOLE SODIUM 40 MG/VIAL IV SCH ×2 (09:56→22:36)
[2022-10-04] MEDS: GUAIFENESIN 600MG ER TABLET PO SCH ×2 (09:56→22:36)
[2022-10-04] MEDS: DORZOLAM/TIMOLOL 2.23/0.68% OPHTH DROPS 10ML LEFTEYE SCH ×2 (09:59→18:02)
[2022-10-04] MEDS ORDERED: POTASSIUM CHLORIDE INJ 40 MEQ in DEXT 5% WATER 250 ML IV ONE (10:00)
[2022-10-04] MEDS: DEXT 5%/0.45% NACL 1000ML 1,000 ML IV SCH (10:39)
[2022-10-04] MEDS: ENOXAPARIN 40MG/0.4ML SYR SUBCUT SCH (10:39)
[2022-10-04 10:48] LABS: PLATELET ESTIMATE NORMAL
[2022-10-04 12:00] VITALS: BP 100/70
[2022-10-04] MEDS: CHOLECALCIFEROL (VIT D3) 400 UNIT TABLET PO SCH (12:56)
[2022-10-04] MEDS: KCL 20MEQ/100ML X 2 FOR TOTAL KCL 40MEQ/200ML IV SCH ×2 (12:56→18:02)
[2022-10-04 16:00] VITALS: BP 120/88
[2022-10-04] MEDS ORDERED: NON FORMULARY PATIENT HOME MED XX SCH (19:30)
[2022-10-04] MEDS ORDERED: MELATONIN 3MG TABLET NG SCH (21:00)
[2022-10-05 00:03] VITALS: BP 108/69
[2022-10-05 04:00] VITALS: BP 104/72
[2022-10-05] MEDS: IPRATROPIUM/ALBUTEROL 0.5-3(2.5)MG/3ML NEB HHN SCH ×7 (04:52→23:56)
[2022-10-05] MEDS: PIPERACILLIN/TAZOBACTAM 3.375 G in DEXTROSE 5% WATER 50 ML IV SCH ×3 (06:10→21:39)
[2022-10-05] MEDS: METOCLOPRAMIDE HCL 10MG/2ML VIAL IV SCH ×3 (06:11→21:39)
[2022-10-05] MEDS: [UNRECOGNIZED DRUG - OTHER] PO SCH (09:00)
[2022-10-05] MEDS: DORZOLAM/TIMOLOL 2.23/0.68% OPHTH DROPS 10ML LEFTEYE SCH ×2 (09:00→17:00)
[2022-10-05] MEDS ORDERED: PREDNISONE 20MG TABLET PO NR (09:00)
[2022-10-05] MEDS: GUAIFENESIN 600MG ER TABLET PO SCH ×2 (09:19→21:39)
[2022-10-05] MEDS: CHOLECALCIFEROL (VIT D3) 400 UNIT TABLET PO SCH (09:19)
[2022-10-05] MEDS: ASCORBIC ACID 500 MG TABLET PO SCH (09:19)
[2022-10-05] MEDS: MULTIVITAMINS,THER W-MINERALS TABLET PO SCH (09:19)
[2022-10-05] MEDS: DOCUSATE SODIUM SUGAR FREE 100MG/10ML UDC GT SCH (09:19)
[2022-10-05] MEDS: ZINC SULFATE 220 MG ( 50 ) CAPSULE PO SCH (09:19)
[2022-10-05] MEDS: PANTOPRAZOLE SODIUM 40 MG/VIAL IV SCH ×2 (09:20→21:39)
[2022-10-05] MEDS: LEVOTHYROXINE SODIUM 137MCG TABLET PO SCH (09:25)
[2022-10-05] MEDS: CETIRIZINE 10MG TABLET PO SCH (09:25)
[2022-10-05] MEDS: ENOXAPARIN 40MG/0.4ML SYR SUBCUT SCH (09:25)
[2022-10-05 12:00] VITALS: BP 114/80
[2022-10-05] MEDS ORDERED: LEVO-65 MT (12:14)
[2022-10-05] MEDS ORDERED: FLUT1DIS3 INH (12:15)
[2022-10-05] MEDS ORDERED: GUAI600T26 MT (12:15)
[2022-10-05] MEDS ORDERED: ALBU18HF2 IH (12:15)
[2022-10-05 16:00] VITALS: BP 103/76
[2022-10-05] MEDS ORDERED: MELATONIN 3MG TABLET PO PRN (16:30)
[2022-10-05 17:38] VITALS: BP 116/85
[2022-10-05 17:58] LABS: HEMATOCRIT 43.4 % (42.0-52.0); HEMOGLOBIN 14.2 g/dL (14.0-18.0); MEAN CORPUSCULAR HEMOGLOBIN 29.4 pg (28.0-32.0); MEAN CORPUSCULAR VOLUME 89.6 fL (80.0-94.0); PLATELET 157 x1000/uL (130-400); RED BLOOD CELL COUNT 4.84 mill/uL (4.7-6.1); RED CELL DISTRIBUTION WIDTH 14.3 % (11.6-14.6)
[2022-10-05 18:38] LABS: CHLORIDE 107 mEq/L (98-107)
[2022-10-05] MEDS: DEXT 5%/0.45% NACL 1000ML 1,000 ML IV SCH ×2 (19:03→22:04)
[2022-10-05 20:00] VITALS: BP 123/83
[2022-10-06] VITALS: BP 108/77
[2022-10-06 04:00] VITALS: BP 104/74
[2022-10-06] MEDS: IPRATROPIUM/ALBUTEROL 0.5-3(2.5)MG/3ML NEB HHN SCH ×5 (04:00→21:30)
[2022-10-06] MEDS: LEVOTHYROXINE SODIUM 137MCG TABLET PO SCH (07:14)
[2022-10-06] MEDS: PIPERACILLIN/TAZOBACTAM 3.375 G in DEXTROSE 5% WATER 50 ML IV SCH ×3 (07:14→22:17)
[2022-10-06] MEDS: METOCLOPRAMIDE HCL 10MG/2ML VIAL IV SCH ×3 (07:14→22:16)
[2022-10-06 08:00] VITALS: BP 114/78
[2022-10-06] MEDS: MULTIVITAMINS,THER W-MINERALS TABLET PO SCH (08:31)
[2022-10-06] MEDS: CETIRIZINE 10MG TABLET PO SCH (08:31)
[2022-10-06] MEDS: DOCUSATE SODIUM SUGAR FREE 100MG/10ML UDC GT SCH (08:31)
[2022-10-06] MEDS: ENOXAPARIN 40MG/0.4ML SYR SUBCUT SCH (08:31)
[2022-10-06] MEDS: GUAIFENESIN 600MG ER TABLET PO SCH ×2 (08:31→22:16)
[2022-10-06] MEDS: ZINC SULFATE 220 MG ( 50 ) CAPSULE PO SCH (08:31)
[2022-10-06] MEDS: CHOLECALCIFEROL (VIT D3) 400 UNIT TABLET PO SCH (08:31)
[2022-10-06] MEDS: ASCORBIC ACID 500 MG TABLET PO SCH (08:31)
[2022-10-06] MEDS: PANTOPRAZOLE SODIUM 40 MG/VIAL IV SCH ×2 (08:31→22:16)
[2022-10-06] MEDS: [UNRECOGNIZED DRUG - OTHER] PO SCH (09:00)
[2022-10-06] MEDS: DORZOLAM/TIMOLOL 2.23/0.68% OPHTH DROPS 10ML LEFTEYE SCH ×2 (09:00→17:00)
[2022-10-06 12:00] VITALS: BP 123/88
[2022-10-06 16:00] VITALS: BP 102/73
[2022-10-06] MEDS: DEXT 5%/0.45% NACL 1000ML 1,000 ML IV SCH (16:57)
[2022-10-06 20:00] VITALS: BP 97/68
[2022-10-07] VITALS (8 sets, daily range): BP systolic 96–146; BP diastolic 70–104
[2022-10-07] MEDS: IPRATROPIUM/ALBUTEROL 0.5-3(2.5)MG/3ML NEB HHN SCH ×5 (04:00→21:25)
[2022-10-07] MEDS: METOCLOPRAMIDE HCL 10MG/2ML VIAL IV SCH ×2 (06:34→13:30)
[2022-10-07] MEDS: LEVOTHYROXINE SODIUM 137MCG TABLET PO SCH (06:34)
[2022-10-07] MEDS: PIPERACILLIN/TAZOBACTAM 3.375 G in DEXTROSE 5% WATER 50 ML IV SCH ×2 (06:34→13:30)
[2022-10-07] MEDS: [UNRECOGNIZED DRUG - OTHER] PO SCH (09:00)
[2022-10-07] MEDS: PANTOPRAZOLE SODIUM 40 MG/VIAL IV SCH (09:39)
[2022-10-07] MEDS: ENOXAPARIN 40MG/0.4ML SYR SUBCUT SCH (09:39)
[2022-10-07] MEDS: DORZOLAM/TIMOLOL 2.23/0.68% OPHTH DROPS 10ML LEFTEYE SCH ×2 (09:43→17:19)
[2022-10-07] MEDS: DOCUSATE SODIUM SUGAR FREE 100MG/10ML UDC GT SCH (09:44)
[2022-10-07] MEDS: ASCORBIC ACID 500 MG TABLET PO SCH (09:45)
[2022-10-07] MEDS: ZINC SULFATE 220 MG ( 50 ) CAPSULE PO SCH (09:45)
[2022-10-07] MEDS: CETIRIZINE 10MG TABLET PO SCH (09:46)
[2022-10-07] MEDS: MULTIVITAMINS,THER W-MINERALS TABLET PO SCH (09:46)
[2022-10-07] MEDS: CHOLECALCIFEROL (VIT D3) 400 UNIT TABLET PO SCH (09:46)
[2022-10-07] MEDS: GUAIFENESIN 600MG ER TABLET PO SCH (09:47)
[2022-10-07] MEDS: ACETAMINOPHEN 325MG TABLET PO PRN (20:39)
== END 2022-10-07 22:23 | disposition home health service (06) | DRG 720 ==
LOC: ER 03:06 → 5EST 04:53 → EDBEDREQ 05:02 → EDBEDREQTM 05:02 → EDBEDREQSVC 05:02 → EDBEDREQ 07:44 → EDBEDREQSVC 08:51 → ENRESERV 11:32 → 8WST 10-04 00:05 → 4WST 10-04 21:14
PROVIDERS: ADMIT Internal Medicine; ATTEND Internal Medicine
PROC: 5A0955A Assistance with Respiratory Ventilation, Greater than 96 Consecutive Hours, High Flow/Velocity Cannula (ICD-10-PCS; 2022-09-21)
PROC: 5A09357 Assistance with Respiratory Ventilation, Less than 24 Consecutive Hours, Continuous Positive Airway Pressure (ICD-10-PCS; 2022-09-21)
PROC: 0DH63UZ Insertion of Feeding Device into Stomach, Percutaneous Approach (ICD-10-PCS; principal; 2022-09-30)
PROC: 0DB68ZX Excision of Stomach, Via Natural or Artificial Opening Endoscopic, Diagnostic (ICD-10-PCS; 2022-09-30)
PROC: 5A0945A Assistance with Respiratory Ventilation, 24-96 Consecutive Hours, High Flow/Velocity Cannula (ICD-10-PCS; 2022-09-30)
PROC: 0JB70ZZ Excision of Back Subcutaneous Tissue and Fascia, Open Approach (ICD-10-PCS; 2022-10-02)
PROC: 5A0935A Assistance with Respiratory Ventilation, Less than 24 Consecutive Hours, High Flow/Velocity Cannula (ICD-10-PCS; 2022-10-02)
DX: A41.9 Sepsis, unspecified organism (principal); J96.01 Acute respiratory failure with hypoxia; E43 Unspecified severe protein-calorie malnutrition; L89.153 Pressure ulcer of sacral region, stage 3; J96.02 Acute respiratory failure with hypercapnia; J18.9 Pneumonia, unspecified organism; R64 Cachexia; E87.1 Hypo-osmolality and hyponatremia; R62.7 Adult failure to thrive; E88.09 Other disorders of plasma-protein metabolism, not elsewhere classified; C64.9 Malignant neoplasm of unspecified kidney, except renal pelvis; C78.00 Secondary malignant neoplasm of unspecified lung; Z20.822 Contact with and (suspected) exposure to COVID-19; E03.9 Hypothyroidism, unspecified; R13.10 Dysphagia, unspecified; K59.00 Constipation, unspecified; E87.6 Hypokalemia; D64.9 Anemia, unspecified; N39.0 Urinary tract infection, site not specified; K29.30 Chronic superficial gastritis without bleeding; I50.9 Heart failure, unspecified; I11.0 Hypertensive heart disease with heart failure; Z86.61 Personal history of infections of the central nervous system; Z68.1 Body mass index [BMI] 19.9 or less, adult; Z88.8 Allergy status to other drugs, medicaments and biological substances; Z90.49 Acquired absence of other specified parts of digestive tract; Z85.850 Personal history of malignant neoplasm of thyroid
CPT/HCPCS: 36415; 36600; 71045; 71275; 74018; 74174; 78580; 80048; 80053; 80061; 82040; 82375; 82728; 82805; 82962; 83036; 83605; 83615; 83735; 83880; 84100; 84145; 84484; 85025; 85027; 85379; 85651; 86606; 86635; 86698; 87426; 87804; 88305; 92610; 93306; 93970; 94640; 97162; 99285; A6261; C1893; C9113; J0690; J0692; J1650; J2270; J2405; J2543; J2704; J2765; J2920; J2930; J3370; J3475; J3480; J3490; J7030; J7060; J7512; Q9967